=== PATIENT | female | born 1950 | race Caucasian/White ===

== ENCOUNTER → 2023-05-25 06:50 | Outpatient (REF) | payer MEDICARE, SELFPAY ==
[2023-05-25 07:36] LABS: % Basophils 0.8 % (0-2); % Eosinophils 2.4 % (0-6); % Immature Granulocytes 0.3 % (0-0.5); % Lymphocytes 32.3 % (20.5-51.1); % Monocytes 7.3 % (1.7-9.3); % Neutrophils 56.9 % (42.2-75.2); Absolute Basophils 0.1 10^3/uL (0-0.2); Absolute Eosinophils 0.2 10^3/uL (0-0.7); Absolute Monocytes 0.5 10^3/uL (0.1-0.6); Absolute Neutrophils 3.5 10^3/uL (1.4-6.5); Hematocrit 39.9 % (37.0-47.0); Hemoglobin 13.3 g/dL (12.0-16.0); Mean Corp Hgb Conc. 33.3 g/dL (33.0-37.0); Mean Corpuscular Hgb 31.4 pg (27.0-31.0); Mean Corpuscular Volume 94.1 fL (81.0-99.0); Mean Platelet Volume 10.2 fL (7.4-10.4); Nucleated Red Blood Cells % 0 %; Platelet Count 174 10^3/uL (130-400); Red Blood Cell Count 4.24 10^6/uL (4.20-5.40); Red Cell Dist. Width 12.8 % (11.5-14.5); White Blood Cell Count 6.1 10^3/uL (4.8-10.8)
[2023-05-25 08:14] LABS: ALT (SGPT) 15 U/L (0-35); AST (SGOT) 23 U/L (14-36); Albumin 4.4 g/dl (3.5-5.0); Alkaline Phosphatase 102 U/L (38-126); Blood Urea Nitrogen 16 mg/dl (7-17); Calcium 9.6 mg/dl (8.4-10.2); Carbon Dioxide 28 mmol/L (22-30); Chloride 103 mmol/L (98-107); Glucose 103 mg/dl (70-99); HDL Cholesterol 56 mg/dl; LDL Cholesterol, Calculated 123 mg/dl; Potassium 4.2 mmol/L (3.5-5.1); Sodium 138 mmol/L (135-145); Total Bilirubin 0.7 mg/dl (0.2-1.3); Total Cholesterol 210 mg/dl (50-199); Total Protein 6.4 g/dl (6.3-8.2); Triglyceride 159 mg/dl (10-149); Very Low Density Lipoprotein 31 mg/dl (0-30); eGFR > 60.00
[2023-05-25 08:58] LABS: TSH Reflex To Free T4 0.89 uIU/ml (0.47-4.68)
== END ==
LOC: REG 06:50
PROVIDERS: ATTENDING PHYSICIAN Internal Medicine
DX: E78.5 Hyperlipidemia, unspecified (principal); I10 Essential (primary) hypertension; E03.9 Hypothyroidism, unspecified; Z00.00 Encounter for general adult medical examination without abnormal findings
CPT/HCPCS: 36415; 80053; 80061; 84443; 85025

== ENCOUNTER 2023-09-06 10:51 | Emergency (ER) | payer MEDICARE, SELFPAY ==
[2023-09-06 11:04] VITALS: BP 128/80; BMI 30.5
--- NOTE | 2023-09-06 11:22 | ED.GENMED ---
History of Present Illness
General
Chief Complaint: Headache
Source: patient
Exam Limitations: none
Time Seen by Provider: 09/06/23 11:21
Nursing documentation reviewed up to this point in time: agreed with except (CC is not headache, it's SOB)
History of Present Illness
History of Present Illness:
73-year-old female with history of hypothyroid, paresthesias/idiopathic peripheral neuropathy, pituitary adenoma, venous insufficiency legs, bradycardia, HLD, presents for shortness of breath. 'I'm really here for shortness of breath.' She states
she has been a little short of breath feeling like she has to catch her breath more than usual for the past 2 months. At 4:30 AM today she awakened and felt like 'I was not breathing right.' She went back to sleep and woke again at 8 AM with
similar feelings. She states she has had mid chest 'like a bruise' feeling for the past 2 days. She has a history of headaches, at 8 AM this morning noted a 5/10 frontal headache and took 2 Advil with little relief. She denies change in vision.
She denies N/V/D/C. She denies numbness or tingling or weakness in her extremities.
She takes Lasix 'for years' for swelling in her ankles.
Past History
Past History
ED Past Medical History: Hypercholesterolemia and Hypothyroidism
ED Past Surgical History: , Orthopedic (Carpal tunnel) and Other (removal pituitary tumor w radiation due to residual piece 'that wraps around my carotid' so it could not be reomoved); Negative Cardiac or Cholecystectomy
Social History
Tobacco: Non-smoker
Alcohol: None
Drug: None
Personal:
Living: with family
Employment: Retired
Family History
Family History: Diabetes (Grandmother)
Review of Systems
Review of Systems
Allergies reviewed?: Yes
All Other Systems: ROS reviewed and negative except as documented in HPI and ROS
Constitutional: Denies fever
EENT: Denies sore throat
Respiratory: Reports trouble breathing (feels like she has to take a deep breath frequently); Denies cough
Cardiac: Reports chest pain ('like a bruise' mid chest); Denies diaphoresis or palpitations
ABD/GI: Denies abdominal pain, nausea, vomiting, diarrhea, constipated or anorexia
: Denies dysuria, frequency or difficulty voiding
Musculoskeletal: Reports edema (states chronic ankle swelling, none now)
Skin: Reports no symptoms
Neurological: Reports headache (frontal 5/10); Denies dizzy, weakness or numbness
Phy Exam
Physical Exam
Physical Exam:
GENERAL: No acute distress. A&Ox3.
CONSTITUTIONAL: Afebrile.
EYES: PERRL, conjunctivae normal
Neck: Supple
ENMT: moist mucus membranes, Pharynx nl
RESPIRATORY: Regular respirations, nonlabored, lungs clear.
CARDIOVASCULAR: Regular rate and rhythm, no murmurs, no rubs.
GI: Soft, nontender, normal BS
MUSCULOSKELETAL: Moves with ease. Well perfused. No edema
SKIN: Warm, dry, pink
PSYCH: Normal mood and affect. Well kept, interactive and appropriate
NEUROLOGIC: Awake, alert and oriented. No focal neurological deficits
Course
Orders/Labs/Results
Orders:
Orders
09/06/23 11:07
EKG [Electrocardiogram (*1)] Stat
Reason for Study: Shortness of Breath
09/06/23 11:08
EKG- Treatment ONCE
09/06/23 11:47
Complete Blood Count/With Diff Urgent
Comprehensive Metabolic Panel Urgent
D-Dimer Urgent
NT-proBNP Urgent
Troponin I Urgent
09/06/23 12:26
CT Chest Pe Study Urgent
Comment:
Reason For Exam: SOB, mild elevated dimer
Abnormal Lab Results
09/06/23
11:47
MCH 32.8 H pg
(27.0-31.0)
D-Dimer 0.58 H ug/mlFEU
(0.00-0.50)
Total Protein 6.2 L g/dl
(6.3-8.2)
09/06/23 11:47
09/06/23 11:47
Vital Signs
Initial and Last Documented VS:
Initial Vital Signs
Temp Pulse Resp BP Pulse Ox
99.2 F 55 18 128/80 98
09/06/23 11:04 09/06/23 11:04 09/06/23 11:04 09/06/23 11:04 09/06/23 11:04
Last Documented Vital Signs
Temp Pulse Resp BP Pulse Ox
99.2 F 45 14 116/74 98
09/06/23 11:04 09/06/23 14:15 09/06/23 14:15 09/06/23 14:00 09/06/23 14:30
Director Of Valuation consulted with Physician
Director Of Valuation consulted with physician?: Yes
Name of Physician Consulted: Devon
MDM/Problems Addressed
Differential Diagnosis Includes:
Asthma, Copd, CHF, ID, PE
MDM/Problems Addressed:
73-year-old female with history of hypothyroid, paresthesias/idiopathic peripheral neuropathy, pituitary adenoma, venous insufficiency legs, bradycardia, HLD, presents for shortness of breath. She states she has been a little short of breath
feeling like she has to catch her breath more than usual for the past 2 months. At 4:30 AM today she awakened and felt like 'I was not breathing right.' She went back to sleep and woke again at 8 AM with similar feelings. She states she has had
mid chest 'like a bruise' feeling for the past 2 days. She has a history of headaches, at 8 AM this morning noted a 5/10 frontal headache and took 2 Advil with little relief. She denies change in vision. She denies N/V/D/C. She denies numbness
or tingling or weakness in her extremities.
She takes Lasix 'for years' for swelling in her ankles.
EKG: sinus bradycardia new nonspecific T wave abnormality
12:15 PM:
CBC normal
CMP normal
Troponin WNL
BNP WNL
D-dimer minimally elevated at 0.58
Frequently gets calf pains at night, nothing new
1:45 PM: Chest CT radiology report read: IMPRESSION:
1. No CTA evidence for acute central pulmonary arterial embolus.
2. Mild cardiomegaly.
3. Moderate mosaic attenuation pattern throughout the lungs suggesting obstructive small airways disease with multifocal air trapping and subsegmental atelectasis.
Reviewed all results with patient and . Pt has been around smokers all her life but has never smoked.
She is stable
Ambulating hallway and talking, maintaining O2 at 97% RA
Stable for discharge, referred to Pulmonology
She is comfortable with this plan.
Rx for Prednisone taper and Albuterol inhaler sent to her pharmacy
Case discussed with Dr. Osorio who agrees with assessment and plan
*EKG
EKG Intrepretation Date: 09/06/23
Interpretation: abnormal
Heart Rate: 46
Rate: bradycardiac
Rhythm: sinus
[place]: normal axis
Interval: normal interval
QRS Pattern: normal QRS
Ischemia: T-wave inversion
*Critical Care Note
Total Time (30-74mins, 75-104mins- exclusive of procedures): Not Applicable
ED Attending Note
-
Portions of this chart may have been created with voice recognition software.� Occasional wrong word or��sound alike� substitutions may have occurred due to the inherent limitations of voice recognition software.
Discharge Plan
Departure
Patient Disposition: Home (Routine Discharge)
Date of Disposition: 09/06/23
Time of Disposition: 14:36
Patient with high blood pressure during this ER visit?: No
Condition: Good
Discharge Problem:
Small airways disease
Instructions: Chronic Obstructive Pulmonary Disease (COPD) (DC)
Prescriptions:
New
prednisone 10 mg Tablet
See Rx Instructions .ROUTE .COMPLEX Qty: 30 0RF
Rx Instructions:
Take By Mouth:
40 mg daily x3 days, 30 mg daily x3 days,
20 mg daily x3 days, 10 mg daily x3 days.
albuterol sulfate [Proventil HFA] 90 mcg/actuation HFA aerosol inhaler
2 puff inhalation QID PRN (Reason: shortness of breath or wheezing) Qty: 6.7 0RF
No Action
levothyroxine 150 MCG tablet
150 mcg PO DAILY AT 0700
furosemide 20 MG tablet
40 mg PO DAILY
irbesartan 150 MG tablet
150 mg PO DAILY
Referrals:
Barber Rosas MD [Family Provider] - Follow up in 2-3 days
Alexis Gonzales MD [Active] - Next open appointment
Activity Restrictions/Additional Instructions:
As we discussed, I sent a prescription to your pharmacy for albuterol inhaler and a prednisone taper.
See your doctor in 2 or 3 days for recheck
I gave you information for a horse racing analyst to use if needed
I cannot diagnose COPD here today but I have provided you with information FYI
Interventions
Interventions:
*Risk Screen - Suicide Last Done: 09/06/23 11:04
*Neglect/Abuse Screening Last Done: 09/06/23 11:04
ED- Fall Risk Assessment Last Done: 09/06/23 11:45
*ED COVID-19 Vaccine History Last Done: 09/06/23 11:36
*Nursing Disposition Last Done: 09/06/23 14:52
ED- Neurological Assessment Last Done: 09/06/23 11:46
Discharge Date and Time
Discharge Date/Time: 09/06/23 14:52
Print Language: SWEDISH
[2023-09-06 11:47] VITALS: BP 129/81
[2023-09-06 11:58] LABS: % Basophils 0.4 % (0-2); % Immature Granulocytes 0.4 % (0-0.5); % Lymphocytes 21.8 % (20.5-51.1); % Monocytes 6.4 % (1.7-9.3); Absolute Lymphocytes 1.8 10^3/uL (1.2-3.4); Absolute Monocytes 0.5 10^3/uL (0.1-0.6); Absolute Neutrophils 5.7 10^3/uL (1.4-6.5); Hematocrit 40.6 % (37.0-47.0); Hemoglobin 14.2 g/dL (12.0-16.0); Mean Corpuscular Hgb 32.8 pg (27.0-31.0); Mean Corpuscular Volume 93.8 fL (81.0-99.0); Mean Platelet Volume 9.8 fL (7.4-10.4); Nucleated Red Blood Cells % 0 %; Platelet Count 164 10^3/uL (130-400); Red Blood Cell Count 4.33 10^6/uL (4.20-5.40); Red Cell Dist. Width 13.2 % (11.5-14.5)
[2023-09-06 12:00] VITALS: BP 116/75
[2023-09-06 12:09] LABS: ALT (SGPT) 21 U/L (0-35); AST (SGOT) 24 U/L (14-36); Albumin 4.2 g/dl (3.5-5.0); Alkaline Phosphatase 73 U/L (38-126); Blood Urea Nitrogen 17 mg/dl (7-17); Calcium 9.6 mg/dl (8.4-10.2); Carbon Dioxide 29 mmol/L (22-30); Chloride 104 mmol/L (98-107); Estimated Creatinine Clearance 78 ml/min; Glucose 98 mg/dl (70-99); Potassium 3.7 mmol/L (3.5-5.1); Sodium 137 mmol/L (135-145); Total Bilirubin 1.2 mg/dl (0.2-1.3); Total Protein 6.2 g/dl (6.3-8.2); eGFR > 60.00
[2023-09-06 12:12] LABS: D-Dimer 0.58 ug/mlFEU (0.00-0.50)
[2023-09-06 12:20] LABS: NT-proBNP 176 pg/ml; Troponin I < 0.012 ng/ml
[2023-09-06 13:00] VITALS: BP 94/83
[2023-09-06 14:00] VITALS: BP 116/74
== END 2023-09-06 14:52 | disposition home or self-care (01) ==
LOC: EMR 10:51
PROVIDERS: Registered Nurse; EMERGENCY PHYSICIAN Emergency Medicine; FAMILY PHYSICIAN Internal Medicine
DX: J98.4 Other disorders of lung (principal); E03.9 Hypothyroidism, unspecified
CPT/HCPCS: 99285; 71275; 80053; 83880; 84484; 85025; 85379; 93005; Q9967

== ENCOUNTER → 2023-09-25 07:48 | Outpatient (REF) | payer MEDICARE, SELFPAY | LOC: HWRCS 07:48 | PROVIDERS: ATTENDING PHYSICIAN Internal Medicine Critical Care Medicine; FAMILY PHYSICIAN Internal Medicine | DX: R06.09 Other forms of dyspnea (principal) | CPT/HCPCS: 93306 ==

== ENCOUNTER → 2023-10-05 11:31 | Outpatient (REF) | payer MEDICARE, SELFPAY | LOC: DHSLP 11:31 | PROVIDERS: ATTENDING PHYSICIAN Internal Medicine Critical Care Medicine; FAMILY PHYSICIAN Internal Medicine | DX: G47.33 Obstructive sleep apnea (adult) (pediatric) (principal) | CPT/HCPCS: 95800 ==

== ENCOUNTER 2023-10-20 18:25 | Emergency (ER) | payer MEDICARE, SELFPAY ==
[2023-10-20 18:35] VITALS: BP 144/80
[2023-10-20 19:01] LABS: % Basophils 0.6 % (0-2); % Immature Granulocytes 0.3 % (0-0.5); % Lymphocytes 29.8 % (20.5-51.1); % Monocytes 7.1 % (1.7-9.3); % Neutrophils 62.2 % (42.2-75.2); Absolute Basophils 0.1 10^3/uL (0-0.2); Absolute Lymphocytes 2.6 10^3/uL (1.2-3.4); Absolute Monocytes 0.6 10^3/uL (0.1-0.6); Absolute Neutrophils 5.5 10^3/uL (1.4-6.5); Hemoglobin 13.6 g/dL (12.0-16.0); Mean Corp Hgb Conc. 34.9 g/dL (33.0-37.0); Mean Corpuscular Hgb 32.7 pg (27.0-31.0); Mean Corpuscular Volume 93.8 fL (81.0-99.0); Mean Platelet Volume 9.6 fL (7.4-10.4); Nucleated Red Blood Cells % 0 %; Platelet Count 192 10^3/uL (130-400); Red Blood Cell Count 4.16 10^6/uL (4.20-5.40); Red Cell Dist. Width 13.1 % (11.5-14.5); White Blood Cell Count 8.8 10^3/uL (4.8-10.8)
[2023-10-20 19:06] LABS: ALT (SGPT) 18 U/L (0-35); AST (SGOT) 27 U/L (14-36); Albumin 4.5 g/dl (3.5-5.0); Alkaline Phosphatase 82 U/L (38-126); Blood Urea Nitrogen 14 mg/dl (7-17); Calcium 9.6 mg/dl (8.4-10.2); Carbon Dioxide 26 mmol/L (22-30); Chloride 101 mmol/L (98-107); Glucose 107 mg/dl (70-99); Potassium 3.7 mmol/L (3.5-5.1); Sodium 140 mmol/L (135-145); Total Bilirubin 0.8 mg/dl (0.2-1.3); Total Protein 6.6 g/dl (6.3-8.2); eGFR > 60.00
[2023-10-20 19:18] LABS: Troponin I 0.016 ng/ml
[2023-10-20 19:30] VITALS: BMI 32.8
[2023-10-20 20:00] VITALS: BP 113/79
--- NOTE | 2023-10-20 21:00 | ED.GENMED ---
History of Present Illness
General
Chief Complaint: Chest Pain
Source: patient
Exam Limitations: none
Time Seen by Provider: 10/20/23 19:25
Nursing documentation reviewed up to this point in time: agreed with
History of Present Illness
History of Present Illness:
The patient is a 73-year-old female who reports intermittent left-sided chest pain and several weeks of shortness of breath. Patient denies cough and fever. Patient reports that at times the chest pain is worse when she takes a deep breath. She
denies leg pain and leg swelling.
Past History
Past History
ED Past Medical History: Hypercholesterolemia and Hypothyroidism
ED Past Surgical History: , Orthopedic (Carpal tunnel) and Other (removal pituitary tumor w radiation due to residual piece 'that wraps around my carotid' so it could not be reomoved)
Social History
Tobacco: Non-smoker
Alcohol: None
Drug: None
Personal:
Living: with family
Employment: Retired
Family History
Family History: Diabetes (Grandmother)
Review of Systems
Review of Systems
Allergies reviewed?: Yes
All Other Systems: ROS reviewed and negative except as documented in HPI and ROS
Constitutional: Reports no symptoms
EENT: Reports no symptoms
Respiratory: Reports trouble breathing
Cardiac: Reports chest pain
ABD/GI: Reports no symptoms
: Reports no symptoms
Musculoskeletal: Reports no symptoms
Skin: Reports no symptoms
Neurological: Reports no symptoms
Endocrine: Reports no symptoms
Hematologic/Lymphatic: Reports no symptoms
Psychiatric: Reports no symptoms
Phy Exam
Physical Exam
Physical Exam:
Physical Exam
General: no apparent distress, not acutely ill
Neck: supple. no meningeal signs. normal psoterior pharynx
Heart: s1/s2 regular rate and rhythm, no murmur. equal radial pulses.
Lungs: no acute respiratory distress. clear bilaterally
Abdomen: normal bowel sounds. not tender. no CVAT
Neuro: alert and oriented. no focal neurological deficits
Skin: no rash
Psychiatric: well kept. interactive and cooperative
Extremities: no edema. no calf tenderness. negative homans. good distal pulses
Scores
Heart Score for Chest Pain Patients
STEMI patient?: No
History: Slightly or Non-Suspicious
ECG: Normal
Age: >/= 65 years
Risk Factors: 1 or 2 Risk Factors
Troponin: </= Normal Limit
Heart Score for Chest Pain Patients: 3
Heart Score Risk: 2.5% MACE over next 6 weeks
Course
Orders/Labs/Results
Orders:
Orders
10/20/23 18:27
ECG [Electrocardiogram (*1)] Urgent
Reason for Study: Chest Pain
EKG- Treatment ONCE
10/20/23 18:41
Complete Blood Count/With Diff Urgent
Comprehensive Metabolic Panel Urgent
Troponin I Urgent
10/20/23 20:22
CT Chest Pe Study Urgent
Comment:
Reason For Exam: CP
10/20/23 20:42
Troponin I Urgent
Abnormal Lab Results
10/20/23
18:41
RBC 4.16 L 10^6/uL
(4.20-5.40)
MCH 32.7 H pg
(27.0-31.0)
Glucose 107 H mg/dl
(70-99)
10/20/23 18:41
10/20/23 18:41
Vital Signs
Initial and Last Documented VS:
Initial Vital Signs
Temp Pulse Resp BP Pulse Ox
98.7 F 65 16 144/80 100
10/20/23 18:35 10/20/23 18:35 10/20/23 18:35 10/20/23 18:35 10/20/23 18:35
Last Documented Vital Signs
Temp Pulse Resp BP Pulse Ox
98.7 F 51 10 113/79 96
10/20/23 18:35 10/20/23 20:00 10/20/23 20:00 10/20/23 20:00 10/20/23 20:00
*Pulse Oximetry
Patient hypoxic: no
*EKG
Interpreted by ED Provider?: Yes
Interpretation: abnormal
Comparison EKG: no comparison EKG present
Rate: bradycardiac
Rhythm: sinus
[place]: left axis deviation
Interval: normal interval
QRS Pattern: normal QRS
Ischemia: no ischemia
*Water Resource Engineer Interpretation
Rate: bradycardiac
Interpretation: normal
Rhythm: sinus
*Critical Care Note
Total Time (30-74mins, 75-104mins- exclusive of procedures): Not Applicable
Data Reviewed
Review of Other/Old Records Reveals: Testing (Normal echo 09/2023)
Source: patient
Patient Management
Social determinants of health affecting care: Living situation and Strong social support
Escalation/DeEscalation of care consider admission/obs:
Patient continues to look extremely well and comfortable. Troponins are negative. EKG appears nonischemic. No sign of acute coronary syndrome. No sign of PE on CT.
ED Attending Note
-
Portions of this chart may have been created with voice recognition software.� Occasional wrong word or��sound alike� substitutions may have occurred due to the inherent limitations of voice recognition software.
Discharge Plan
Departure
Patient Disposition: Home (Routine Discharge)
Date of Disposition: 10/20/23
Time of Disposition: 21:52
Patient with high blood pressure during this ER visit?: No
Condition: Good
Covid-19: Not Applicable
Discharge Problem:
Chest pain in adult
Instructions: Chest Pain PCP Follow Up
Prescriptions:
No Action
levothyroxine 150 MCG tablet
150 mcg PO DAILY AT 0700
furosemide 20 MG tablet
40 mg PO DAILY
irbesartan 150 MG tablet
150 mg PO DAILY
prednisone 10 mg Tablet
See Rx Instructions .ROUTE .COMPLEX Qty: 30 0RF
Rx Instructions:
Take By Mouth:
40 mg daily x3 days, 30 mg daily x3 days,
20 mg daily x3 days, 10 mg daily x3 days.
albuterol sulfate [Proventil HFA] 90 mcg/actuation HFA aerosol inhaler
2 puff inhalation QID PRN (Reason: shortness of breath or wheezing) Qty: 6.7 0RF
Referrals:
Barber Rosas MD [Family Provider] -
Interventions
Interventions:
*Risk Screen - Suicide Last Done: 10/20/23 19:25
*General Assessment Last Done: 10/20/23 19:30
*Neglect/Abuse Screening Last Done: 10/20/23 19:25
*ED COVID-19 Vaccine History Last Done: 10/20/23 19:30
*Nursing Disposition Last Done: 10/20/23 22:04
ED- Cardiac Assessment Last Done: 10/20/23 19:30
Discharge Date and Time
Discharge Date/Time: 10/20/23 22:04
Print Language: AU[place]
[2023-10-20 21:13] LABS: Troponin I < 0.012 ng/ml
== END 2023-10-20 22:04 | disposition home or self-care (01) ==
LOC: EMR 18:25
PROVIDERS: Emergency Medicine; EMERGENCY PHYSICIAN Emergency Medicine; FAMILY PHYSICIAN Internal Medicine
DX: R07.89 Other chest pain (principal)
CPT/HCPCS: 99285; 71275; 80053; 84484; 85025; 93005; Q9967

== ENCOUNTER → 2023-10-30 14:28 | Outpatient (REF) | payer MEDICARE, SELFPAY | LOC: HWWDC 14:28 | PROVIDERS: ATTENDING PHYSICIAN Internal Medicine | DX: Z12.31 Encounter for screening mammogram for malignant neoplasm of breast (principal) | CPT/HCPCS: 77063; 77067 ==

== ENCOUNTER → 2023-11-28 07:25 | Outpatient (REF) | payer MEDICARE, SELFPAY ==
[2023-11-28 09:12] LABS: ALT (SGPT) 15 U/L (0-35); AST (SGOT) 22 U/L (14-36); Albumin 4.4 g/dl (3.5-5.0); Alkaline Phosphatase 91 U/L (38-126); Direct Bilirubin 0.1 mg/dl (0.0-0.4); HDL Cholesterol 49 mg/dl; LDL Cholesterol, Calculated 121 mg/dl; Total Bilirubin 0.7 mg/dl (0.2-1.3); Total Cholesterol 220 mg/dl (50-199); Total Protein 6.3 g/dl (6.3-8.2); Triglyceride 251 mg/dl (10-149); Very Low Density Lipoprotein 50 mg/dl (0-30)
== END ==
LOC: REG 07:25
PROVIDERS: ATTENDING PHYSICIAN Internal Medicine
DX: E78.5 Hyperlipidemia, unspecified (principal); I10 Essential (primary) hypertension; Z68.32 Body mass index [BMI] 32.0-32.9, adult
CPT/HCPCS: 36415; 80061; 80076

== ENCOUNTER → 2023-12-21 10:46 | Outpatient (REF) | payer MEDICARE, SELFPAY ==
[2023-12-21 13:20] LABS: Vitamin B12 800 pg/ml (239-931)
== END ==
LOC: REG 10:46
PROVIDERS: ATTENDING PHYSICIAN Internal Medicine
DX: G60.9 Hereditary and idiopathic neuropathy, unspecified (principal)
CPT/HCPCS: 36415; 82607

== ENCOUNTER → 2024-06-02 10:08 | Outpatient (REF) | payer MEDICARE, SELFPAY | LOC: HWEVLT 10:08 | PROVIDERS: ATTENDING PHYSICIAN Radiology Vascular & Interventional Radiology | DX: I83.893 Varicose veins of bilateral lower extremities with other complications (principal) | CPT/HCPCS: 93970 ==

== ENCOUNTER → 2024-06-09 07:56 | Outpatient (REF) | payer MEDICARE, SELFPAY ==
[2024-06-09 09:27] LABS: % Basophils 0.6 % (0-2); % Eosinophils 1.3 % (0-6); % Immature Granulocytes 0.1 % (0-0.5); % Lymphocytes 28.6 % (20.5-51.1); % Neutrophils 61.4 % (42.2-75.2); Absolute Eosinophils 0.1 10^3/uL (0-0.7); Absolute Monocytes 0.6 10^3/uL (0.1-0.6); Absolute Neutrophils 4.3 10^3/uL (1.4-6.5); Hematocrit 42.2 % (37.0-47.0); Hemoglobin 14.3 g/dL (12.0-16.0); Mean Corp Hgb Conc. 33.9 g/dL (33.0-37.0); Mean Corpuscular Hgb 31.8 pg (27.0-31.0); Mean Corpuscular Volume 93.8 fL (81.0-99.0); Mean Platelet Volume 9.9 fL (7.4-10.4); Nucleated Red Blood Cells % 0 %; Platelet Count 217 10^3/uL (130-400); Red Cell Dist. Width 12.5 % (11.5-14.5)
[2024-06-09 10:48] LABS: TSH Reflex To Free T4 0.52 uIU/ml (0.47-4.68)
[2024-06-09 10:50] LABS: ALT (SGPT) 15 U/L (0-35); AST (SGOT) 21 U/L (14-36); Albumin 4.8 g/dl (3.5-5.0); Alkaline Phosphatase 107 U/L (38-126); Blood Urea Nitrogen 12 mg/dl (7-17); Calcium 9.4 mg/dl (8.4-10.2); Carbon Dioxide 30 mmol/L (22-30); Chloride 102 mmol/L (98-107); Glucose 101 mg/dl (70-99); HDL Cholesterol 58 mg/dl; LDL Cholesterol, Calculated 152 mg/dl; Sodium 141 mmol/L (135-145); Total Bilirubin 1.2 mg/dl (0.2-1.3); Total Cholesterol 235 mg/dl (50-199); Total Protein 6.7 g/dl (6.3-8.2); Triglyceride 126 mg/dl (10-149); Very Low Density Lipoprotein 25 mg/dl (0-30); eGFR > 60.00
== END ==
LOC: REG 07:56
PROVIDERS: ATTENDING PHYSICIAN Internal Medicine
DX: Z00.01 Encounter for general adult medical examination with abnormal findings (principal); E78.5 Hyperlipidemia, unspecified; I10 Essential (primary) hypertension; E03.9 Hypothyroidism, unspecified
CPT/HCPCS: 36415; 80053; 80061; 84443; 85025

== ENCOUNTER → 2024-06-27 08:37 | Outpatient (REF) | payer MEDICARE, SELFPAY ==
[2024-06-27 10:33] LABS: % Basophils 0.3 % (0-2); % Immature Granulocytes 0.4 % (0-0.5); % Lymphocytes 30.4 % (20.5-51.1); % Monocytes 6.4 % (1.7-9.3); % Neutrophils 62.5 % (42.2-75.2); Absolute Lymphocytes 2.8 10^3/uL (1.2-3.4); Absolute Monocytes 0.6 10^3/uL (0.1-0.6); Absolute Neutrophils 5.7 10^3/uL (1.4-6.5); Hematocrit 43.3 % (37.0-47.0); Hemoglobin 14.3 g/dL (12.0-16.0); Mean Corpuscular Volume 93.9 fL (81.0-99.0); Mean Platelet Volume 10.1 fL (7.4-10.4); Nucleated Red Blood Cells % 0 %; Platelet Count 234 10^3/uL (130-400); Red Blood Cell Count 4.61 10^6/uL (4.20-5.40); White Blood Cell Count 9.1 10^3/uL (4.8-10.8)
[2024-06-27 10:58] LABS: ALT (SGPT) 18 U/L (0-35); AST (SGOT) 20 U/L (14-36); Albumin 4.9 g/dl (3.5-5.0); Alkaline Phosphatase 103 U/L (38-126); Blood Urea Nitrogen 16 mg/dl (7-17); Calcium 9.7 mg/dl (8.4-10.2); Carbon Dioxide 31 mmol/L (22-30); Chloride 103 mmol/L (98-107); Glucose 98 mg/dl (70-99); Iron 115 ug/dl (37-170); Potassium 4.9 mmol/L (3.5-5.1); Sodium 139 mmol/L (135-145); Total Bilirubin 0.9 mg/dl (0.2-1.3); Total Protein 6.9 g/dl (6.3-8.2); eGFR > 60.00
[2024-06-27 11:07] LABS: Percent Saturation 39 % (20-50); Total Iron Binding Capacity 288 ug/dl (265-497)
[2024-06-27 19:18] LABS: FSH 13.3 mIU/ml; Luteinizing Hormone 6.09 mIU/ml; Prolactin 25.5 ng/ml (3.0-18.6)
[2024-06-27 19:34] LABS: Estradiol 14.1 pg/ml; Testosterone, Total 10.1 ng/dl
[2024-06-28 20:54] LABS: DHEA Sulfate 23 ug/dL (9-246)
== END ==
LOC: REG 08:37
PROVIDERS: ATTENDING PHYSICIAN Physician Assistant; FAMILY PHYSICIAN Internal Medicine
DX: L65.9 Nonscarring hair loss, unspecified (principal); L70.9 Acne, unspecified
CPT/HCPCS: 36415; 80053; 82627; 82670; 82728; 83001; 83002; 83540; 83550; 84146; 84403; 85025

== ENCOUNTER → 2024-09-10 07:31 | Outpatient (REF) | payer MEDICARE, SELFPAY ==
[2024-09-10 09:55] LABS: Blood Urea Nitrogen 10 mg/dl (7-17); Calcium 9.2 mg/dl (8.4-10.2); Carbon Dioxide 29 mmol/L (22-30); Chloride 104 mmol/L (98-107); Glucose 104 mg/dl (70-99); Potassium 4.2 mmol/L (3.5-5.1); Sodium 140 mmol/L (135-145); eGFR > 60.00
[2024-09-10 10:06] LABS: Hematocrit 40.5 % (37.0-47.0); Hemoglobin 13.6 g/dL (12.0-16.0); Mean Corp Hgb Conc. 33.6 g/dL (33.0-37.0); Mean Corpuscular Volume 93.1 fL (81.0-99.0); Nucleated Red Blood Cells % 0 %; Platelet Count 218 10^3/uL (130-400); Red Cell Dist. Width 12.7 % (11.5-14.5)
== END ==
LOC: REG 07:31
PROVIDERS: ATTENDING PHYSICIAN Internal Medicine
DX: Z01.818 Encounter for other preprocedural examination (principal)
CPT/HCPCS: 36415; 80048; 85025

== ENCOUNTER → 2024-09-13 17:26 | Outpatient (REF) | payer MEDICARE, SELFPAY | LOC: MRI 3T 17:26 | PROVIDERS: ATTENDING PHYSICIAN Internal Medicine | DX: Z86.018 Personal history of other benign neoplasm (principal); R79.89 Other specified abnormal findings of blood chemistry | CPT/HCPCS: 70553; A9575 ==

== ENCOUNTER → 2024-09-21 07:11 | Outpatient (REF) | payer MEDICARE, SELFPAY ==
[2024-09-21 08:17] LABS: Hematocrit 40.2 % (37.0-47.0); Hemoglobin 13.3 g/dL (12.0-16.0); Mean Corp Hgb Conc. 33.1 g/dL (33.0-37.0); Mean Corpuscular Volume 93.5 fL (81.0-99.0); Nucleated Red Blood Cells % 0 %; Platelet Count 198 10^3/uL (130-400); Red Cell Dist. Width 12.9 % (11.5-14.5)
[2024-09-21 09:07] LABS: Blood Urea Nitrogen 13 mg/dl (7-17); Calcium 9.4 mg/dl (8.4-10.2); Carbon Dioxide 29 mmol/L (22-30); Chloride 106 mmol/L (98-107); Glucose 101 mg/dl (70-99); Potassium 4.3 mmol/L (3.5-5.1); Sodium 141 mmol/L (135-145); eGFR > 60.00
== END ==
LOC: REG 07:11
PROVIDERS: ATTENDING PHYSICIAN Orthopaedic Surgery; FAMILY PHYSICIAN Internal Medicine
DX: Z01.818 Encounter for other preprocedural examination (principal)
CPT/HCPCS: 36415; 80048; 85025; 93005

== ENCOUNTER 2024-10-29 02:40 | Emergency (ER) | payer MEDICARE, SELFPAY ==
[2024-10-29 02:48] VITALS: BP 151/69
[2024-10-29 04:41] LABS: Urine Character Clear (Clear)
--- NOTE | 2024-10-29 04:45 | ED.GENMED ---
History of Present Illness
General
Chief Complaint: Bowel Problem
Source: patient
Exam Limitations: none
Time Seen by Provider: 10/29/24 03:47
Nursing documentation reviewed up to this point in time: agreed with
History of Present Illness
History of Present Illness:
The patient is a 74-year-old female who underwent a right hip replacement approximately one and a half weeks ago. Post-surgery, she has been taking oxycodone to manage pain but reports issues with bowel movements. Initially, she experienced a large
bowel movement four days after surgery, but states there has been minimal activity since, describing small movements over the weekend and none afterward. She began stool softeners yesterday and took a Dulcolax suppository at 1:30 PM yesterday and
then again at 9:30 PM last night. She also took a dose of MiraLAX 8 PM last night. She experiences a sensation of fullness and has only passed scant liquid stool. There is no visible bleeding. The patient denies any fever beyond a recorded
temperature of 99.2�F two days post-surgery. She reports adequate appetite and pain management in the hip area. There has been no discomfort with urination but she does note some urinary hesitancy this evening and difficulty urinating since this
evening. Currently, she is participating in physical therapy and reports satisfactory recovery of hip function.
Upon arrival to the ED, patient moderately uncomfortable. Bedside bladder scan reveals over 800 cc in the bladder.
Nursing staff have straight cath the patient for over 800 cc with significant relief of lower abdominal discomfort.
No prior episodes of severe constipation nor urinary retention.
Past History
Past History
ED Past Medical History: Hypercholesterolemia and Hypothyroidism
ED Past Surgical History: , Orthopedic (Carpal tunnel; right total hip replacement October 17, 2024) and Other (removal pituitary tumor w radiation due to residual piece 'that wraps around my carotid' so it could not be reomoved)
Social History
Tobacco: Non-smoker
Alcohol: None
Drug: None
Personal:
Living: with family
Employment: Retired
Family History
Family History: Diabetes (Grandmother)
Phy Exam
Physical Exam
Physical Exam:
GENERAL: 74-year-old woman appears her stated age, awake and alert, pleasant, mildly uncomfortable but easily communicative.
EYE: anicteric
NECK: Supple, nontender, no meningismus, no significant adenopathy.
ENT: oral mucosa is moist. No rhinorrhea.
CARDIAC: Regular rate and rhythm. no murmur.
LUNGS: Clear breath sounds bilaterally, no acute respiratory distress, no wheezes/rales/rhonchi
ABDOMEN: Soft, nondistended, very minimal tenderness with deep palpation only to the left lower quadrant, no r/g, no palpable masses, no cvat. normoactive BS. Rectal exam reveals a small external hemorrhoid posteriorly that is minimally tender to
palpation. It is not thrombosed. There is scant liquid brown stool oozing from the anus with moderate hard stool within the rectal vault.
NEUROLOGICAL: Alert and oriented x3, no focal neuro deficits.
SKIN: Warm and dry, normal color, skin intact. No rash.
MUSCULOSKELETAL: Mild global edema to the right lower extremity. Right lateral hip incision well-healed, dry and intact. There is moderate dark purple ecchymosis that extends along the anterolateral right hip down to the dorsal right foot.
Peripheral pulses are full and equal b/l. No palpable tenderness.
PSYCH: Normal and appropriate interaction.
Course
Orders/Labs/Results
Orders:
Orders
10/29/24 03:49
Straight cath- Treatment ONCE
CR Obstruct Series W/pa Chest Urgent
Comment:
Reason For Exam: abdominal pain, constipation
10/29/24 04:20
Urinalysis Reflex To Culture Urgent
Date Specimen was Collected: 10/29/24
Time Specimen was Collected: 04:10
10/29/24 04:45
Enema- Treatment ONCE
Type: Milk of Molasses
Vital Signs
Initial and Last Documented VS:
Initial Vital Signs
Temp Pulse Resp BP Pulse Ox
99.2 F 98 28 151/69 97
10/29/24 02:48 10/29/24 02:48 10/29/24 02:48 10/29/24 02:48 10/29/24 02:48
Last Documented Vital Signs
Temp Pulse Resp BP Pulse Ox
99.2 F 98 28 151/69 97
10/29/24 02:48 10/29/24 02:48 10/29/24 02:48 10/29/24 02:48 10/29/24 04:52
MDM/Problems Addressed
Differential Diagnosis Includes:
The Differential Diagnosis includes, in no particular order and is not limited to:
1. Opioid-induced constipation
2. Fecal impaction
3. Bowel obstruction
4. Colonic inertia
5. Anal fissure
6. Hypothyroidism
7. Dehydration
8. Electrolyte imbalance
9. Intestinal obstruction
10. Malignancy
MDM/Problems Addressed:
Acute:
- Post-operative constipation related to opioid use after hip replacement.
- Acute urinary retention I suspect related to fecal impaction.
Patient has been straight cathed to empty bladder. Will check urinalysis and will plan to check obstruction series to assess for degree of constipation, assess for potential bowel obstruction, free air.
Will likely require enema for fecal impaction.
*Radiology
Radiology exam reviewed: preliminary read by ED provider (Obstruction series shows moderate stool within the rectum, mild stool along the descending colon. No obstruction or free air. Clear lung john. Right total hip replacement.)
*Pulse Oximetry
SaO2: 97
Oxygen Mode of Delivery: Room air
Patient hypoxic: no
*Critical Care Note
Total Time (30-74mins, 75-104mins- exclusive of procedures): Not Applicable
Update Note
Update Note:
04:45
Urinalysis is unremarkable.
Obstruction series shows moderate stool within the rectum, mild stool along the descending colon but no bowel obstruction nor significant fecal impaction. No free air. Clear lung john.
Will plan for milk of molasses enema.
06:00
Patient has had success after enema, passed a large firm to soft brown stool.
Abdominal pain has resolved.
Will discharge to home with recommendations to continue MiraLAX once daily beginning tomorrow. If needed she can add a daily stool softener such as Colace.
She has 1 Percocet left and does not plan to take this thus opioid related constipation should not recur at least in the near future.
Discussed importance of staying well-hydrated on a daily basis.
Continue to follow with orthopedics as planned and follow-up with PCP as well.
ED Attending Note
-
Portions of this chart may have been created with voice recognition software.� Occasional wrong word or��sound alike� substitutions may have occurred due to the inherent limitations of voice recognition software.
Discharge Plan
Departure
Patient Disposition: Home (Routine Discharge)
Date of Disposition: 10/29/24
Time of Disposition: 06:03
Patient with high blood pressure during this ER visit?: No
Condition: Good
Discharge Problem:
Acute opioid related constipation, Acute urinary retention d/t fecal impact
Instructions: Constipation, Adult (DC), Fecal Impaction (DC)
Prescriptions:
No Action
levothyroxine 150 MCG tablet
150 mcg PO DAILY AT 0700
furosemide 20 MG tablet
40 mg PO DAILY
irbesartan 150 MG tablet
150 mg PO DAILY
aspirin 325 mg Tablet
325 mg PO DAILY
montelukast 10 mg Tablet
10 mg PO DAILY
Referrals:
Barber Rosas MD [Family Provider, Internal Medicine] - Call in 1-3 days for appt
Activity Restrictions/Additional Instructions:
For today, Thursday, I want you to hold off on any further stool softeners, bowel stimulants.
I do however want you to stay well-hydrated, drinking plenty of clear liquids on a daily basis and increase fiber rich foods.
Beginning tomorrow, I want you to start MiraLAX, 1 capful in 6 ounces of water or juice and continue this on a daily basis.
If constipation persists after several days of once daily MiraLAX, I want you to continue MiraLAX but also add a stool softener such as Colace (docusate sodium) 1 capsule once or twice daily.
Avoid any further doses of Dulcolax tablets as these are bowel stimulants and will cause significant bowel cramping.
Interventions
Interventions:
*Risk Screen - Suicide Last Done: 10/29/24 02:48
*General Assessment Last Done: 10/29/24 02:48
*Neglect/Abuse Screening Last Done: 10/29/24 02:48
*ED- Fall Risk Assessment Last Done: 10/29/24 02:48
*ED COVID-19 Vaccine History Last Done: 10/29/24 02:48
IJ-Dyzgpb-Wshjuhbvxb Assessment Last Done: 10/29/24 03:33
Discharge Date and Time
Print Language: [place]AST [place]
[2024-10-29 06:00] VITALS: BP 135/59
== END 2024-10-29 06:15 | disposition home or self-care (01) ==
LOC: EMR 02:40
PROVIDERS: EMERGENCY PHYSICIAN Emergency Medicine; FAMILY PHYSICIAN Internal Medicine
DX: K59.03 Drug induced constipation (principal); T40.2X5A Adverse effect of other opioids, initial encounter; R33.9 Retention of urine, unspecified; E03.9 Hypothyroidism, unspecified; E78.00 Pure hypercholesterolemia, unspecified; Z96.641 Presence of right artificial hip joint; K64.4 Residual hemorrhoidal skin tags
CPT/HCPCS: 99284; 74022; 81003

== ENCOUNTER → 2024-12-01 12:50 | Outpatient (REF) | payer MEDICARE, SELFPAY | LOC: RAD 12:50 | PROVIDERS: ATTENDING PHYSICIAN Orthopaedic Surgery; FAMILY PHYSICIAN Internal Medicine | DX: M79.661 Pain in right lower leg (principal) | CPT/HCPCS: 93971 ==

== ENCOUNTER → 2024-12-16 07:35 | Outpatient (REF) | payer MEDICARE, SELFPAY ==
[2024-12-16 09:18] LABS: ALT (SGPT) 13 U/L (0-35); AST (SGOT) 20 U/L (14-36); Albumin 4.4 g/dl (3.5-5.0); Alkaline Phosphatase 103 U/L (38-126); HDL Cholesterol 41 mg/dl; LDL Cholesterol, Calculated 103 mg/dl; Total Protein 6.4 g/dl (6.3-8.2); Very Low Density Lipoprotein 56 mg/dl (0-30)
== END ==
LOC: REG 07:35
PROVIDERS: ATTENDING PHYSICIAN Internal Medicine
DX: E78.5 Hyperlipidemia, unspecified (principal); I10 Essential (primary) hypertension; E66.9 Obesity, unspecified
CPT/HCPCS: 36415; 80061; 80076